=== PATIENT | female | born 1950 | race Caucasian/White ===

== ENCOUNTER 2016-09-10 10:50 | Emergency (ER) | payer OTHER ==
[~2016-09-10] VITALS: Ht 167.6 cm; Wt 156.5 kg
[~2016-09-10 10:50] MED LIST: ACETAMINOPHEN325 M1 PO; ACTOS 45 MG45 M1 PO; ALEVE220 MG PO; AMBIEN 10 MG TA10 MG PO; ASPIRIN EC81 M1 PO; BISACODYL SUPP10 MG RE; BYETTA PEN 51 PENIN1 SC; BYETTA SQ; BYSTOLIC 5 MG5 M1 PO; CELEXA 10 MG TA10 M1 PO; CENTRUM COMPLE1 EACH PO; CLARITIN10 MG PO; COLACE 100 MG100 MG PO; DETROL LA4 MG PO; DIOVAN40 MG PO; FISHOIL PO; GLUCOPHAGE XR500 MG PO; GLYBURIDE 5 MG T5 MG PO; HYDROCODON-ACE1 EAC7 PO; IRON325 PO; LANTUS SUBQ; LOPRESSOR 50 MG50 M1 PO; METOCLOPRAMIDE10 MG PO; MYLANTA 12 OZ355 M1 GT; PROTONIX40 M2 PO; RESTORIL30 MG PO; VALSARTAN PO; [UNRECOGNIZED DRUG - OTHER] PO
== END 2016-09-10 12:46 | disposition home or self-care (01) ==
LOC: ER 10:50
DX: S63.501A Unspecified sprain of right wrist, initial encounter (principal); S40.011A Contusion of right shoulder, initial encounter; E11.9 Type 2 diabetes mellitus without complications; Z90.710 Acquired absence of both cervix and uterus; Z90.49 Acquired absence of other specified parts of digestive tract; Z79.4 Long term (current) use of insulin; Z88.5 Allergy status to narcotic agent; Z85.528 Personal history of other malignant neoplasm of kidney; Z85.05 Personal history of malignant neoplasm of liver; Z86.018 Personal history of other benign neoplasm; V43.52XA Car driver injured in collision with other type car in traffic accident, initial encounter; Y93.I9 Activity, other involving external motion; Y92.415 Exit ramp or entrance ramp of street or highway as the place of occurrence of the external cause; Y99.8 Other external cause status